=== PATIENT | female | born 1945 | race Caucasian/White ===

== ENCOUNTER 2018-08-18 10:45 | Inpatient (IN) | payer MEDICARE, MEDICAID ==
[~2018-08-18] VITALS: Ht 160 cm; Wt 97.7 kg
[2018-08-18] MEDS ORDERED: FUROSEMIDE 40MG/4ML VIAL IV ONE (11:15)
[2018-08-18] MEDS ORDERED: ASPIRIN 81MG TABLET PO ONE (11:15)
[2018-08-18] MEDS ORDERED: IPRATROPIUM/ALBUTEROL 0.5-3(2.5)MG/3ML NEB HHN ONE (11:15)
[2018-08-18 13:02] LABS: BASOPHILS % 0.7 % (0.0-2.0); EOSINOPHILS % 4.9 % (0.0-5.0); HEMOGLOBIN. 9.7 g/dL (12.0-16.0); LYMPHOCYTES % 23.1 % (20.0-50.0); MEAN CORPUSCULAR HEMOGLOBIN 28.5 pg (28.0-32.0); MEAN PLATELET VOLUME 9.6 fl (7.4-10.4); MONOCYTES % 8.3 % (2.0-8.0); PLATELET 234 x1000/uL (130-400); RED BLOOD CELL COUNT 3.41 mill/uL (4.2-5.4); RED CELL DISTRIBUTION WIDTH 13.4 % (11.6-14.6)
[2018-08-18 13:06] LABS: CHLORIDE 110 mEq/L (98-107)
[2018-08-18 13:17] LABS: D-DIMER 1.75 mg/L FEU (<0.50); PROTHROMBIN TIME 10.5 sec (9.6-11.0)
[2018-08-18 14:47] LABS: CLARITY URINE CLEAR (CLEAR); COLOR URINE YELLOW (YELLOW); KETONES URINE NEGATIVE (NEGATIVE); LEUKOCYTE ESTERASE URINE NEGATIVE (NEGATIVE); NITRITE URINE NEGATIVE (NEGATIVE); OCCULT BLOOD URINE NEGATIVE (NEGATIVE); PH URINE 6.5 (4.5-8.0); PROTEIN URINE TRACE (NEGATIVE); SPECIFIC GRAVITY URINE 1.007 (1.005-1.030); UROBILINOGEN URINE 0.2 E.U./dL (0.2-1.0)
[2018-08-18] MEDS ORDERED: IOHEXOL-350 100 ML BOTTLE ONE (16:25)
[2018-08-18 21:00] VITALS: BP 128/67
[2018-08-18] MEDS ORDERED: MAGNESIUM/ALUMINUM HYDROXIDE/SIMETHICONE 30ML UDC PO PRN (21:30)
[2018-08-18] MEDS ORDERED: IPRATROPIUM/ALBUTEROL 0.5-3(2.5)MG/3ML NEB INH PRN (21:30)
[2018-08-18] MEDS ORDERED: DIPHENHYDRAMINE 50MG/ML VIAL IV PRN (21:30)
[2018-08-18] MEDS ORDERED: CLONIDINE 0.1MG TABLET PO PRN (21:30)
[2018-08-18] MEDS ORDERED: SENNOSIDES 8.6MG TABLET PO PRN (21:30)
[2018-08-18] MEDS ORDERED: MAGNESIUM HYDROXIDE 400MG/5ML 30ML UDC PO PRN (21:30)
[2018-08-18] MEDS ORDERED: TEMAZEPAM 15MG CAPSULE PO PRN (21:30)
[2018-08-18] MEDS ORDERED: ONDANSETRON HCL 4MG/2ML INJ IV PRN (21:30)
[2018-08-18] MEDS ORDERED: ACETAMINOPHEN 325MG TABLET PO PRN (21:30)
[2018-08-18] MEDS: LOSARTAN POTASSIUM 50 MG TABLET PO SCH (22:21)
[2018-08-18] MEDS: FUROSEMIDE 40MG/4ML VIAL IVP SCH (22:22)
[2018-08-18] MEDS: SODIUM CHLORIDE 0.9% INJ 3ML FLUSH IVF SCH (22:22)
[2018-08-18 23:13] VITALS: BP 128/67
[2018-08-19] VITALS: BP 112/55
[2018-08-19] MEDS ORDERED: CLONIDINE 0.1MG TABLET PO PRN (01:15)
[2018-08-19] MEDS ORDERED: ONDANSETRON HCL 4MG/2ML INJ IV PRN (01:15)
[2018-08-19] MEDS ORDERED: ACETAMINOPHEN 325MG TABLET PO PRN (01:15)
[2018-08-19] MEDS ORDERED: DIPHENHYDRAMINE 50MG/ML VIAL IV PRN (01:15)
[2018-08-19] MEDS ORDERED: DEXTROSE 50% WATER 50ML SYRINGE IV PRN ×2 (01:15→07:40)
[2018-08-19] MEDS ORDERED: MAGNESIUM/ALUMINUM HYDROXIDE/SIMETHICONE 30ML UDC PO PRN (01:15)
[2018-08-19 04:00] VITALS: BP 118/56
[2018-08-19] MEDS ORDERED: SODIUM CHLORIDE 0.9% INJ 3ML FLUSH IVF SCH (06:00)
[2018-08-19] MEDS: SODIUM CHLORIDE 0.9% INJ 3ML FLUSH IVF SCH ×3 (06:17→21:48)
[2018-08-19 07:36] LABS: BASOPHILS % 0.5 % (0.0-2.0); EOSINOPHILS % 5.1 % (0.0-5.0); HEMATOCRIT. 27.4 % (36.0-48.0); HEMOGLOBIN. 9.1 g/dL (12.0-16.0); MEAN CORPUSCULAR HEMOGLOBIN 28.2 pg (28.0-32.0); MEAN PLATELET VOLUME 9.7 fl (7.4-10.4); MONOCYTES % 11.3 % (2.0-8.0); NEUTROPHILS % 63.1 % (40.0-76.0); PLATELET 207 x1000/uL (130-400); RED BLOOD CELL COUNT 3.22 mill/uL (4.2-5.4); RED CELL DISTRIBUTION WIDTH 13.2 % (11.6-14.6)
[2018-08-19 07:37] LABS: CHLORIDE 108 mEq/L (98-107)
[2018-08-19] MEDS ORDERED: BLOOD SUGAR DIAGNOSTIC STRIP TEST SCH (07:40)
[2018-08-19] MEDS ORDERED: OMEPRAZOLE 20MG CAPSULE EXTENDED RELEASE PO SCH (07:40)
[2018-08-19 07:43] LABS: LDL CHOLESTEROL 45 mg/dL (5-100); PHOSPHORUS 4.2 mg/dL (2.5-4.9)
[2018-08-19 07:45] LABS: HDL CHOLESTEROL 54 mg/dL (40-59)
[2018-08-19] MEDS: INSULIN LISPRO 100 UNITS/ML SUBCUT SCH ×4 (07:50→22:04)
[2018-08-19] MEDS: BLOOD SUGAR DIAGNOSTIC STRIP TEST SCH ×4 (07:50→21:48)
[2018-08-19 08:00] VITALS: BP 146/51
[2018-08-19] MEDS ORDERED: METFORMIN HCL 500MG TABLET PO SCH (08:10)
[2018-08-19] MEDS ORDERED: INSULIN LISPRO 100 UNITS/ML SUBCUT SCH (08:10)
[2018-08-19] MEDS ORDERED: AMLODIPINE 5MG TABLET PO SCH (09:00)
[2018-08-19] MEDS ORDERED: CHOLECALCIFEROL (VIT D3) 400 UNIT TABLET PO SCH (09:00)
[2018-08-19] MEDS: ASPIRIN 81MG EC TABLET PO SCH (09:03)
[2018-08-19] MEDS: LOSARTAN POTASSIUM 50 MG TABLET PO SCH ×2 (09:03→21:47)
[2018-08-19] MEDS: SPIRONOLACTONE 25MG TABLET PO SCH (09:04)
[2018-08-19] MEDS: CARVEDILOL 12.5MG TABLET PO SCH ×2 (09:04→21:47)
[2018-08-19] MEDS: ENOXAPARIN 40MG/0.4ML SYR SUBCUT SCH (09:05)
[2018-08-19] MEDS: FUROSEMIDE 40MG/4ML VIAL IVP SCH ×2 (09:55→22:07)
[2018-08-19 12:00] VITALS: BP 136/54
[2018-08-19 16:00] VITALS: BP 138/55
[2018-08-19 20:00] VITALS: BP 124/43
[2018-08-19] MEDS ORDERED: TERAZOSIN HCL 1MG CAPSULE PO SCH (21:00)
[2018-08-19] MEDS: ATORVASTATIN CALCIUM 40MG TABLET PO SCH (21:47)
[2018-08-19] MEDS: IRON SUCROSE COMPLEX 100 MG/5 ML ML IV SCH (22:07)
[2018-08-20] VITALS: BP 107/30
[2018-08-20 04:00] VITALS: BP 131/69
[2018-08-20] MEDS: BLOOD SUGAR DIAGNOSTIC STRIP TEST SCH ×4 (06:09→22:44)
[2018-08-20] MEDS: SODIUM CHLORIDE 0.9% INJ 3ML FLUSH IVF SCH ×3 (06:09→22:45)
[2018-08-20 08:00] VITALS: BP 145/45
[2018-08-20] MEDS: INSULIN LISPRO 100 UNITS/ML SUBCUT SCH ×4 (08:10→22:48)
[2018-08-20] MEDS: ENOXAPARIN 40MG/0.4ML SYR SUBCUT SCH (09:00)
[2018-08-20] MEDS: CARVEDILOL 12.5MG TABLET PO SCH ×2 (10:06→22:43)
[2018-08-20] MEDS: FUROSEMIDE 40MG/4ML VIAL IVP SCH ×2 (10:06→22:06)
[2018-08-20] MEDS: SPIRONOLACTONE 25MG TABLET PO SCH (10:06)
[2018-08-20] MEDS: ASPIRIN 81MG EC TABLET PO SCH (10:07)
[2018-08-20] MEDS: LOSARTAN POTASSIUM 50 MG TABLET PO SCH ×2 (10:09→22:43)
[2018-08-20 20:00] VITALS: BP 134/52
[2018-08-20] MEDS: IRON SUCROSE COMPLEX 100 MG/5 ML ML IV SCH (22:06)
[2018-08-20] MEDS: ATORVASTATIN CALCIUM 40MG TABLET PO SCH (22:43)
[2018-08-21] VITALS: BP 125/56
[2018-08-21 04:00] VITALS: BP 135/53
[2018-08-21] MEDS: SODIUM CHLORIDE 0.9% INJ 3ML FLUSH IVF SCH ×3 (06:51→21:07)
[2018-08-21] MEDS: BLOOD SUGAR DIAGNOSTIC STRIP TEST SCH ×4 (06:51→21:07)
[2018-08-21 08:00] VITALS: BP 144/55
[2018-08-21] MEDS: FUROSEMIDE 40MG/4ML VIAL IVP SCH ×2 (08:35→21:07)
[2018-08-21] MEDS: LOSARTAN POTASSIUM 50 MG TABLET PO SCH ×2 (08:49→21:06)
[2018-08-21] MEDS: ENOXAPARIN 40MG/0.4ML SYR SUBCUT SCH (08:50)
[2018-08-21] MEDS: SPIRONOLACTONE 25MG TABLET PO SCH (08:50)
[2018-08-21] MEDS: ASPIRIN 81MG EC TABLET PO SCH (08:50)
[2018-08-21] MEDS: INSULIN LISPRO 100 UNITS/ML SUBCUT SCH ×4 (08:51→21:08)
[2018-08-21] MEDS: CARVEDILOL 12.5MG TABLET PO SCH (08:55)
[2018-08-21 12:00] VITALS: BP 145/46
[2018-08-21 16:00] VITALS: BP 133/50
[2018-08-21 20:00] VITALS: BP 135/41
[2018-08-21] MEDS: IRON SUCROSE COMPLEX 100 MG/5 ML ML IV SCH (21:07)
[2018-08-21] MEDS: ATORVASTATIN CALCIUM 40MG TABLET PO SCH (21:09)
[2018-08-22] VITALS: BP 139/52
[2018-08-22 04:00] VITALS: BP 153/60
[2018-08-22] MEDS: SODIUM CHLORIDE 0.9% INJ 3ML FLUSH IVF SCH ×3 (05:49→21:18)
[2018-08-22 08:00] VITALS: BP 166/58
[2018-08-22] MEDS: ENOXAPARIN 40MG/0.4ML SYR SUBCUT SCH (08:25)
[2018-08-22] MEDS: INSULIN LISPRO 100 UNITS/ML SUBCUT SCH ×4 (08:25→21:37)
[2018-08-22] MEDS: LOSARTAN POTASSIUM 50 MG TABLET PO SCH (08:27)
[2018-08-22] MEDS: SPIRONOLACTONE 25MG TABLET PO SCH (08:27)
[2018-08-22] MEDS: BLOOD SUGAR DIAGNOSTIC STRIP TEST SCH ×4 (08:27→21:18)
[2018-08-22] MEDS: ASPIRIN 81MG EC TABLET PO SCH (08:27)
[2018-08-22] MEDS: FUROSEMIDE 40MG/4ML VIAL IVP SCH (09:04)
[2018-08-22] MEDS ORDERED: HYDRALAZINE HCL 25MG TABLET PO SCH (11:15)
[2018-08-22 12:00] VITALS: BP 134/60
[2018-08-22] MEDS: FERROUS SULFATE 325MG TABLET PO SCH ×2 (14:10→18:16)
[2018-08-22 20:00] VITALS: BP 134/49
[2018-08-22] MEDS: ATORVASTATIN CALCIUM 40MG TABLET PO SCH (21:17)
[2018-08-22] MEDS: HYDRALAZINE HCL 50MG TABLET PO SCH (21:18)
[2018-08-23] VITALS: BP 119/41
[2018-08-23 04:00] VITALS: BP 130/48
[2018-08-23] MEDS: BLOOD SUGAR DIAGNOSTIC STRIP TEST SCH ×3 (06:07→17:40)
[2018-08-23] MEDS: SODIUM CHLORIDE 0.9% INJ 3ML FLUSH IVF SCH ×2 (06:08→14:00)
[2018-08-23] MEDS: INSULIN LISPRO 100 UNITS/ML SUBCUT SCH ×3 (07:29→18:35)
[2018-08-23 08:00] VITALS: BP 136/45
[2018-08-23] MEDS ORDERED: FUROSEMIDE 40MG TABLET PO SCH (09:00)
[2018-08-23] MEDS ORDERED: LOSARTAN POTASSIUM 100 MG TABLET PO SCH (09:00)
[2018-08-23] MEDS: ASPIRIN 81MG EC TABLET PO SCH (09:40)
[2018-08-23] MEDS: FERROUS SULFATE 325MG TABLET PO SCH ×3 (09:40→18:35)
[2018-08-23] MEDS: HYDRALAZINE HCL 50MG TABLET PO SCH (09:41)
[2018-08-23] MEDS: ENOXAPARIN 40MG/0.4ML SYR SUBCUT SCH (09:49)
[2018-08-23 12:00] VITALS: BP 136/45
[2018-08-23 15:57] VITALS: BP 144/41
[2018-08-23 18:51] VITALS: BP 144/41
== END 2018-08-23 19:30 | DRG 291 ==
LOC: ER 10:45 → EDBEDREQ 11:49 → 7WST 13:45 → EDBEDREQ 13:47 → ENRESERV 20:31
PROVIDERS: ADMIT Internal Medicine; ATTEND Internal Medicine
DX: I11.0 Hypertensive heart disease with heart failure (principal); J96.00 Acute respiratory failure, unspecified whether with hypoxia or hypercapnia; G45.9 Transient cerebral ischemic attack, unspecified; I69.354 Hemiplegia and hemiparesis following cerebral infarction affecting left non-dominant side; D50.9 Iron deficiency anemia, unspecified; E66.01 Morbid (severe) obesity due to excess calories; R00.1 Bradycardia, unspecified; E11.9 Type 2 diabetes mellitus without complications; E78.5 Hyperlipidemia, unspecified; I50.43 Acute on chronic combined systolic (congestive) and diastolic (congestive) heart failure; M19.90 Unspecified osteoarthritis, unspecified site; R79.1 Abnormal coagulation profile; Z68.38 Body mass index [BMI] 38.0-38.9, adult; Z82.49 Family history of ischemic heart disease and other diseases of the circulatory system; Z90.710 Acquired absence of both cervix and uterus; Z90.49 Acquired absence of other specified parts of digestive tract
CPT/HCPCS: 36415; 70551; 71045; 71275; 80048; 80061; 82270; 82962; 83036; 83540; 83550; 83605; 83735; 83880; 84100; 84443; 84484; 85379; 92523; 93005; 93306; 93970; 96374; 97162; 97164; 97166; 99285; A6261; J1200; J1650; J1815; J1940; J7620; Q9967

== ENCOUNTER 2018-08-23 19:30 | Inpatient (IN) | payer MEDICARE, MEDICAID ==
[~2018-08-23] VITALS: Ht 160 cm; Wt 78.0 kg
[2018-08-23 19:30] VITALS: BP 138/70
[2018-08-23 20:00] VITALS: BP 138/70
[2018-08-23] MEDS ORDERED: DEXTROSE 50% WATER 50ML SYRINGE IV PRN ×2 (23:00)
[2018-08-23] MEDS: INSULIN LISPRO 100 UNITS/ML SUBCUT SCH (23:45)
[2018-08-24] MEDS ORDERED: ACETAMINOPHEN 650MG SUPP PR PRN
[2018-08-24] MEDS ORDERED: CLONIDINE 0.1MG TABLET PO PRN
[2018-08-24] MEDS ORDERED: MAGNESIUM HYDROXIDE 400MG/5ML 30ML UDC PO PRN
[2018-08-24] MEDS ORDERED: MAGNESIUM/ALUMINUM HYDROXIDE/SIMETHICONE 30ML UDC PO PRN
[2018-08-24] MEDS: BLOOD SUGAR DIAGNOSTIC STRIP TEST SCH ×5 (00:12→21:42)
[2018-08-24] MEDS: ATORVASTATIN CALCIUM 40MG TABLET PO SCH ×2 (00:13→21:42)
[2018-08-24] MEDS: TEMAZEPAM 15MG CAPSULE PO PRN (00:29)
[2018-08-24] MEDS ORDERED: ACETAMINOPHEN 325MG TABLET PO PRN (00:30)
[2018-08-24] MEDS: IPRATROPIUM/ALBUTEROL 0.5-3(2.5)MG/3ML NEB HHN PRN (00:57)
[2018-08-24] MEDS ORDERED: BLOOD SUGAR DIAGNOSTIC STRIP TEST SCH (06:30)
[2018-08-24] MEDS: INSULIN LISPRO 100 UNITS/ML SUBCUT SCH ×4 (06:52→21:30)
[2018-08-24 07:02] LABS: HEMATOCRIT. 28.7 % (36.0-48.0); HEMOGLOBIN. 9.5 g/dL (12.0-16.0); MEAN CORPUSCULAR HEMOGLOBIN 28.2 pg (28.0-32.0); MEAN CORPUSCULAR VOLUME 85.1 fL (81.0-99.0); MEAN PLATELET VOLUME 9.9 fl (7.4-10.4); PLATELET 207 x1000/uL (130-400); RED BLOOD CELL COUNT 3.38 mill/uL (4.2-5.4)
[2018-08-24 07:31] LABS: CHLORIDE 105 mEq/L (98-107)
[2018-08-24 08:19] VITALS: BP 144/53
[2018-08-24] MEDS: LOSARTAN POTASSIUM 100 MG TABLET PO SCH (09:37)
[2018-08-24] MEDS: HYDRALAZINE HCL 50MG TABLET PO SCH ×2 (09:37→21:43)
[2018-08-24] MEDS: ENOXAPARIN 40MG/0.4ML SYR SUBCUT SCH (09:37)
[2018-08-24] MEDS: FERROUS SULFATE 325MG TABLET PO SCH ×3 (09:37→17:23)
[2018-08-24] MEDS: ASPIRIN 81MG EC TABLET PO SCH (09:37)
[2018-08-24] MEDS: FUROSEMIDE 40MG TABLET PO SCH (09:38)
[2018-08-24 15:47] LABS: PLATELET ESTIMATE NORMAL
[2018-08-24 20:00] VITALS: BP 125/53
[2018-08-24] MEDS ORDERED: ATORVASTATIN CALCIUM 40MG TABLET PO SCH (21:00)
[2018-08-25] MEDS: TEMAZEPAM 15MG CAPSULE PO PRN ×2 (00:12→22:43)
[2018-08-25] MEDS: IPRATROPIUM/ALBUTEROL 0.5-3(2.5)MG/3ML NEB HHN PRN (00:38)
[2018-08-25 01:00] LABS: CLARITY URINE CLEAR (CLEAR); COLOR URINE YELLOW (YELLOW); KETONES URINE NEGATIVE (NEGATIVE); LEUKOCYTE ESTERASE URINE TRACE (NEGATIVE); NITRITE URINE NEGATIVE (NEGATIVE); OCCULT BLOOD URINE NEGATIVE (NEGATIVE); PH URINE 6.5 (4.5-8.0); PROTEIN URINE 1+ (NEGATIVE); SPECIFIC GRAVITY URINE 1.009 (1.005-1.030)
[2018-08-25] MEDS: BLOOD SUGAR DIAGNOSTIC STRIP TEST SCH ×4 (05:59→21:00)
[2018-08-25] MEDS: INSULIN LISPRO 100 UNITS/ML SUBCUT SCH ×4 (06:00→21:00)
[2018-08-25 08:36] VITALS: BP 122/41
[2018-08-25] MEDS: FERROUS SULFATE 325MG TABLET PO SCH ×3 (08:54→17:15)
[2018-08-25] MEDS: FUROSEMIDE 40MG TABLET PO SCH (08:54)
[2018-08-25] MEDS: ASPIRIN 81MG EC TABLET PO SCH (08:54)
[2018-08-25] MEDS: LOSARTAN POTASSIUM 100 MG TABLET PO SCH (08:54)
[2018-08-25] MEDS: ENOXAPARIN 40MG/0.4ML SYR SUBCUT SCH (08:55)
[2018-08-25] MEDS: LIDOCAINE 5% PATCH TOP SCH (08:55)
[2018-08-25] MEDS: HYDRALAZINE HCL 50MG TABLET PO SCH ×2 (09:00→20:53)
[2018-08-25] MEDS: LACTULOSE 20G/30ML UDC PO SCH ×3 (13:04→20:00)
[2018-08-25 20:30] VITALS: BP 136/68
[2018-08-25] MEDS: ATORVASTATIN CALCIUM 40MG TABLET PO SCH (20:52)
[2018-08-26] MEDS: BLOOD SUGAR DIAGNOSTIC STRIP TEST SCH ×4 (06:30→21:59)
[2018-08-26 06:48] LABS: CHLORIDE 106 mEq/L (98-107)
[2018-08-26 06:51] LABS: BASOPHILS % 0.7 % (0.0-2.0); EOSINOPHILS % 7.1 % (0.0-5.0); HEMATOCRIT. 29.7 % (36.0-48.0); LYMPHOCYTES % 27.4 % (20.0-50.0); MEAN CORPUSCULAR HEMOGLOBIN 28.2 pg (28.0-32.0); MEAN CORPUSCULAR VOLUME 84.3 fL (81.0-99.0); MEAN PLATELET VOLUME 9.5 fl (7.4-10.4); MONOCYTES % 11.7 % (2.0-8.0); NEUTROPHILS % 53.1 % (40.0-76.0); PLATELET 211 x1000/uL (130-400); RED BLOOD CELL COUNT 3.53 mill/uL (4.2-5.4); RED CELL DISTRIBUTION WIDTH 13.4 % (11.6-14.6)
[2018-08-26 07:00] LABS: TOTAL IRON BINDING CAPACITY 193 ug/dL (250-450)
[2018-08-26 07:01] LABS: PHOSPHORUS 3.1 mg/dL (2.5-4.9)
[2018-08-26] MEDS: INSULIN LISPRO 100 UNITS/ML SUBCUT SCH ×4 (07:25→22:00)
[2018-08-26 07:36] LABS: FOLIC ACID (FOLATE) SERUM 10.9 ng/mL (>5.38)
[2018-08-26 08:36] VITALS: BP 123/49
[2018-08-26] MEDS ORDERED: CYANOCOBALAMIN 1000MCG/ML VIAL IM NR (08:45)
[2018-08-26] MEDS: FERROUS SULFATE 325MG TABLET PO SCH ×3 (08:47→16:41)
[2018-08-26] MEDS: ASPIRIN 81MG EC TABLET PO SCH (08:47)
[2018-08-26] MEDS: FUROSEMIDE 40MG TABLET PO SCH (08:47)
[2018-08-26] MEDS: HYDRALAZINE HCL 50MG TABLET PO SCH ×2 (08:47→21:59)
[2018-08-26] MEDS: LIDOCAINE 5% PATCH TOP SCH (08:48)
[2018-08-26] MEDS: ENOXAPARIN 40MG/0.4ML SYR SUBCUT SCH (08:48)
[2018-08-26] MEDS: LOSARTAN POTASSIUM 100 MG TABLET PO SCH (08:48)
[2018-08-26] MEDS: AMOXICILLIN 500 MG CAPSULE PO SCH ×2 (14:01→21:58)
[2018-08-26] MEDS: CYANOCOBALAMIN 1000MCG/ML VIAL IM SCH (18:23)
[2018-08-26 20:00] VITALS: BP 126/63
[2018-08-26] MEDS: ATORVASTATIN CALCIUM 40MG TABLET PO SCH (21:58)
[2018-08-27] MEDS: TEMAZEPAM 15MG CAPSULE PO PRN (01:04)
[2018-08-27] MEDS: BLOOD SUGAR DIAGNOSTIC STRIP TEST SCH ×4 (06:32→21:19)
[2018-08-27] MEDS: AMOXICILLIN 500 MG CAPSULE PO SCH ×3 (06:33→21:18)
[2018-08-27] MEDS: INSULIN LISPRO 100 UNITS/ML SUBCUT SCH ×4 (06:33→22:00)
[2018-08-27 07:30] VITALS: BP 144/56
[2018-08-27] MEDS: ASPIRIN 81MG EC TABLET PO SCH (09:11)
[2018-08-27] MEDS: FUROSEMIDE 40MG TABLET PO SCH (09:11)
[2018-08-27] MEDS: CYANOCOBALAMIN 1000MCG/ML VIAL IM SCH (09:12)
[2018-08-27] MEDS: HYDRALAZINE HCL 50MG TABLET PO SCH ×2 (09:12→21:19)
[2018-08-27] MEDS: ENOXAPARIN 40MG/0.4ML SYR SUBCUT SCH (09:12)
[2018-08-27] MEDS: FERROUS SULFATE 325MG TABLET PO SCH ×3 (09:12→16:40)
[2018-08-27] MEDS: LOSARTAN POTASSIUM 100 MG TABLET PO SCH (09:12)
[2018-08-27] MEDS: LIDOCAINE 5% PATCH TOP SCH (09:13)
[2018-08-27] MEDS: ATORVASTATIN CALCIUM 40MG TABLET PO SCH (21:18)
[2018-08-27 21:31] VITALS: BP 123/42
[2018-08-28] MEDS: BLOOD SUGAR DIAGNOSTIC STRIP TEST SCH ×4 (06:03→21:50)
[2018-08-28] MEDS: AMOXICILLIN 500 MG CAPSULE PO SCH ×3 (06:04→21:10)
[2018-08-28] MEDS: INSULIN LISPRO 100 UNITS/ML SUBCUT SCH ×4 (06:09→21:11)
[2018-08-28 08:05] VITALS: BP 144/59
[2018-08-28] MEDS: HYDRALAZINE HCL 50MG TABLET PO SCH ×2 (08:53→21:10)
[2018-08-28] MEDS: ASPIRIN 81MG EC TABLET PO SCH (08:53)
[2018-08-28] MEDS: FUROSEMIDE 40MG TABLET PO SCH (08:53)
[2018-08-28] MEDS: CYANOCOBALAMIN 1000MCG/ML VIAL IM SCH (08:54)
[2018-08-28] MEDS: LOSARTAN POTASSIUM 100 MG TABLET PO SCH (08:54)
[2018-08-28] MEDS: FERROUS SULFATE 325MG TABLET PO SCH ×3 (08:54→16:50)
[2018-08-28] MEDS: ENOXAPARIN 40MG/0.4ML SYR SUBCUT SCH (08:54)
[2018-08-28] MEDS: LIDOCAINE 5% PATCH TOP SCH (08:55)
[2018-08-28 20:00] VITALS: BP 137/93
[2018-08-28] MEDS: TEMAZEPAM 15MG CAPSULE PO PRN (21:10)
[2018-08-28] MEDS: ATORVASTATIN CALCIUM 40MG TABLET PO SCH (21:10)
[2018-08-28] MEDS: SENNOSIDES 8.6MG TABLET PO PRN (21:10)
[2018-08-29] MEDS: AMOXICILLIN 500 MG CAPSULE PO SCH ×3 (06:14→21:04)
[2018-08-29] MEDS: INSULIN LISPRO 100 UNITS/ML SUBCUT SCH ×4 (06:16→21:08)
[2018-08-29] MEDS: BLOOD SUGAR DIAGNOSTIC STRIP TEST SCH ×4 (06:40→21:00)
[2018-08-29 07:38] VITALS: BP 148/55
[2018-08-29 08:00] VITALS: BP 148/55
[2018-08-29] MEDS: ASPIRIN 81MG EC TABLET PO SCH (08:27)
[2018-08-29] MEDS: FUROSEMIDE 40MG TABLET PO SCH (08:28)
[2018-08-29] MEDS: LOSARTAN POTASSIUM 100 MG TABLET PO SCH (08:28)
[2018-08-29] MEDS: FERROUS SULFATE 325MG TABLET PO SCH ×3 (08:28→16:25)
[2018-08-29] MEDS: HYDRALAZINE HCL 50MG TABLET PO SCH ×2 (08:28→21:04)
[2018-08-29] MEDS: ENOXAPARIN 40MG/0.4ML SYR SUBCUT SCH (08:29)
[2018-08-29] MEDS: LIDOCAINE 5% PATCH TOP SCH (08:29)
[2018-08-29] MEDS: CYANOCOBALAMIN 1000MCG/ML VIAL IM SCH (08:37)
[2018-08-29 20:00] VITALS: BP 159/53
[2018-08-29] MEDS: ATORVASTATIN CALCIUM 40MG TABLET PO SCH (21:04)
[2018-08-30] MEDS: BLOOD SUGAR DIAGNOSTIC STRIP TEST SCH ×4 (06:30→21:22)
[2018-08-30] MEDS: AMOXICILLIN 500 MG CAPSULE PO SCH ×3 (06:34→21:21)
[2018-08-30] MEDS: INSULIN LISPRO 100 UNITS/ML SUBCUT SCH ×4 (06:34→21:27)
[2018-08-30 08:00] VITALS: BP 130/55
[2018-08-30] MEDS: CYANOCOBALAMIN 1000MCG/ML VIAL IM SCH (09:10)
[2018-08-30] MEDS: ASPIRIN 81MG EC TABLET PO SCH (09:10)
[2018-08-30] MEDS: HYDRALAZINE HCL 50MG TABLET PO SCH ×2 (09:11→21:22)
[2018-08-30] MEDS: FUROSEMIDE 40MG TABLET PO SCH (09:11)
[2018-08-30] MEDS: FERROUS SULFATE 325MG TABLET PO SCH ×3 (09:11→17:49)
[2018-08-30] MEDS: LOSARTAN POTASSIUM 100 MG TABLET PO SCH (09:11)
[2018-08-30] MEDS: ENOXAPARIN 40MG/0.4ML SYR SUBCUT SCH (09:14)
[2018-08-30] MEDS: LIDOCAINE 5% PATCH TOP SCH (09:15)
[2018-08-30] MEDS: CELECOXIB 100MG CAPSULE PO SCH (15:00)
[2018-08-30 20:00] VITALS: BP 135/48
[2018-08-30] MEDS: SENNOSIDES 8.6MG TABLET PO PRN (21:21)
[2018-08-30] MEDS: ATORVASTATIN CALCIUM 40MG TABLET PO SCH (21:22)
[2018-08-31] MEDS: BLOOD SUGAR DIAGNOSTIC STRIP TEST SCH ×4 (06:11→21:32)
[2018-08-31] MEDS: AMOXICILLIN 500 MG CAPSULE PO SCH ×3 (06:11→21:30)
[2018-08-31] MEDS: INSULIN LISPRO 100 UNITS/ML SUBCUT SCH ×4 (06:37→21:36)
[2018-08-31 07:56] VITALS: BP 121/39
[2018-08-31 08:00] VITALS: BP 121/39
[2018-08-31] MEDS: FERROUS SULFATE 325MG TABLET PO SCH ×3 (08:42→17:35)
[2018-08-31] MEDS: CELECOXIB 100MG CAPSULE PO SCH (08:42)
[2018-08-31] MEDS: ENOXAPARIN 40MG/0.4ML SYR SUBCUT SCH (08:42)
[2018-08-31] MEDS: FUROSEMIDE 40MG TABLET PO SCH (08:43)
[2018-08-31] MEDS: ASPIRIN 81MG EC TABLET PO SCH (08:43)
[2018-08-31] MEDS: LIDOCAINE 5% PATCH TOP SCH (08:43)
[2018-08-31] MEDS: HYDRALAZINE HCL 50MG TABLET PO SCH ×2 (08:43→21:00)
[2018-08-31] MEDS: CYANOCOBALAMIN 1000MCG/ML VIAL IM SCH (08:50)
[2018-08-31] MEDS: LOSARTAN POTASSIUM 100 MG TABLET PO SCH (08:51)
[2018-08-31] MEDS ORDERED: BUPIVACAINE HCL/PF 0.25% (2.5MG/ML) 10ML INFIL NR (17:45)
[2018-08-31] MEDS ORDERED: ETHYL CHLORIDE CAN TOP NR (17:45)
[2018-08-31] MEDS ORDERED: TRIAMCINOLONE ACETONIDE 40MG/ML 1ML VIAL IM NR (17:45)
[2018-08-31] MEDS ORDERED: LIDOCAINE HCL 1% 20ML VIAL (Pyxis) INJ INFIL NR (17:45)
[2018-08-31 20:00] VITALS: BP 108/50
[2018-08-31] MEDS: ATORVASTATIN CALCIUM 40MG TABLET PO SCH (21:30)
[2018-09-01] MEDS: BLOOD SUGAR DIAGNOSTIC STRIP TEST SCH ×4 (05:15→21:00)
[2018-09-01] MEDS: AMOXICILLIN 500 MG CAPSULE PO SCH ×3 (05:15→22:27)
[2018-09-01] MEDS: INSULIN LISPRO 100 UNITS/ML SUBCUT SCH ×4 (06:27→22:29)
[2018-09-01 06:35] LABS: BASOPHILS % 0.8 % (0.0-2.0); EOSINOPHILS % 7.2 % (0.0-5.0); HEMATOCRIT. 30.2 % (36.0-48.0); LYMPHOCYTES % 33.5 % (20.0-50.0); MEAN CORPUSCULAR HEMOGLOBIN 28.2 pg (28.0-32.0); MEAN CORPUSCULAR VOLUME 84.8 fL (81.0-99.0); MEAN PLATELET VOLUME 9.7 fl (7.4-10.4); NEUTROPHILS % 47.5 % (40.0-76.0); PLATELET 217 x1000/uL (130-400); RED BLOOD CELL COUNT 3.56 mill/uL (4.2-5.4); RED CELL DISTRIBUTION WIDTH 13.7 % (11.6-14.6)
[2018-09-01 08:52] VITALS: BP 134/50
[2018-09-01] MEDS: ENOXAPARIN 40MG/0.4ML SYR SUBCUT SCH (09:33)
[2018-09-01] MEDS: LIDOCAINE 5% PATCH TOP SCH (09:35)
[2018-09-01] MEDS: CELECOXIB 100MG CAPSULE PO SCH (09:36)
[2018-09-01] MEDS: ASPIRIN 81MG EC TABLET PO SCH (09:37)
[2018-09-01] MEDS: LOSARTAN POTASSIUM 100 MG TABLET PO SCH (09:37)
[2018-09-01] MEDS: HYDRALAZINE HCL 50MG TABLET PO SCH ×2 (09:38→22:28)
[2018-09-01] MEDS: FUROSEMIDE 40MG TABLET PO SCH (09:38)
[2018-09-01] MEDS: FERROUS SULFATE 325MG TABLET PO SCH ×3 (09:39→16:35)
[2018-09-01] MEDS: CYANOCOBALAMIN 1000MCG/ML VIAL IM SCH (09:39)
[2018-09-01 20:00] VITALS: BP 153/58
[2018-09-01] MEDS: ATORVASTATIN CALCIUM 40MG TABLET PO SCH (22:27)
[2018-09-02] MEDS: AMOXICILLIN 500 MG CAPSULE PO SCH ×2 (05:49→13:09)
[2018-09-02] MEDS: BLOOD SUGAR DIAGNOSTIC STRIP TEST SCH ×4 (05:49→21:18)
[2018-09-02] MEDS: INSULIN LISPRO 100 UNITS/ML SUBCUT SCH ×4 (06:22→21:34)
[2018-09-02 08:40] VITALS: BP 124/43
[2018-09-02] MEDS: FERROUS SULFATE 325MG TABLET PO SCH ×3 (08:40→17:12)
[2018-09-02] MEDS: HYDRALAZINE HCL 50MG TABLET PO SCH ×2 (08:40→20:45)
[2018-09-02] MEDS: CELECOXIB 100MG CAPSULE PO SCH (08:40)
[2018-09-02] MEDS: ASPIRIN 81MG EC TABLET PO SCH (08:40)
[2018-09-02] MEDS: FUROSEMIDE 40MG TABLET PO SCH (08:40)
[2018-09-02] MEDS: LIDOCAINE 5% PATCH TOP SCH ×2 (08:41→11:51)
[2018-09-02] MEDS: ENOXAPARIN 40MG/0.4ML SYR SUBCUT SCH (08:41)
[2018-09-02] MEDS: LOSARTAN POTASSIUM 100 MG TABLET PO SCH (08:44)
[2018-09-02] MEDS: METFORMIN HCL 500MG TABLET PO SCH (17:12)
[2018-09-02 19:11] LABS: 25-HYDROXY VITAMIN D3 1.7 ng/mL (.)
[2018-09-02 20:00] VITALS: BP 131/44
[2018-09-02] MEDS: ATORVASTATIN CALCIUM 40MG TABLET PO SCH (20:45)
[2018-09-03] MEDS: BLOOD SUGAR DIAGNOSTIC STRIP TEST SCH ×4 (06:10→20:28)
[2018-09-03] MEDS: INSULIN LISPRO 100 UNITS/ML SUBCUT SCH ×4 (06:38→20:49)
[2018-09-03 07:15] LABS: BASOPHILS % 0.7 % (0.0-2.0); EOSINOPHILS % 6.2 % (0.0-5.0); HEMATOCRIT. 28.6 % (36.0-48.0); HEMOGLOBIN. 9.5 g/dL (12.0-16.0); LYMPHOCYTES % 29.3 % (20.0-50.0); MEAN CORPUSCULAR HEMOGLOBIN 27.9 pg (28.0-32.0); MEAN CORPUSCULAR VOLUME 84.5 fL (81.0-99.0); MONOCYTES % 9.8 % (2.0-8.0); PLATELET 211 x1000/uL (130-400); RED BLOOD CELL COUNT 3.39 mill/uL (4.2-5.4); RED CELL DISTRIBUTION WIDTH 13.5 % (11.6-14.6)
[2018-09-03 07:48] LABS: CHLORIDE 108 mEq/L (98-107)
[2018-09-03 07:59] LABS: PHOSPHORUS 3.5 mg/dL (2.5-4.9)
[2018-09-03 08:04] VITALS: BP 141/61
[2018-09-03] MEDS: METFORMIN HCL 500MG TABLET PO SCH ×2 (08:35→17:19)
[2018-09-03] MEDS: LOSARTAN POTASSIUM 100 MG TABLET PO SCH (08:35)
[2018-09-03] MEDS: ASPIRIN 81MG EC TABLET PO SCH (08:35)
[2018-09-03] MEDS: FUROSEMIDE 40MG TABLET PO SCH (08:35)
[2018-09-03] MEDS: FERROUS SULFATE 325MG TABLET PO SCH ×3 (08:36→17:19)
[2018-09-03] MEDS: CELECOXIB 100MG CAPSULE PO SCH (08:36)
[2018-09-03] MEDS: HYDRALAZINE HCL 50MG TABLET PO SCH ×2 (08:36→20:23)
[2018-09-03] MEDS: LIDOCAINE 5% PATCH TOP SCH ×2 (08:36→08:37)
[2018-09-03] MEDS: ENOXAPARIN 40MG/0.4ML SYR SUBCUT SCH (08:37)
[2018-09-03] MEDS ORDERED: ERGOCALCIFEROL 50000UNITS CAPSULE PO SCH (16:30)
[2018-09-03 20:00] VITALS: BP 134/50
[2018-09-03] MEDS: ATORVASTATIN CALCIUM 40MG TABLET PO SCH (20:23)
[2018-09-04] MEDS: BLOOD SUGAR DIAGNOSTIC STRIP TEST SCH ×4 (06:22→21:00)
[2018-09-04 08:07] VITALS: BP 142/49
[2018-09-04] MEDS: CELECOXIB 100MG CAPSULE PO SCH (08:51)
[2018-09-04] MEDS: FUROSEMIDE 40MG TABLET PO SCH (08:52)
[2018-09-04] MEDS: FERROUS SULFATE 325MG TABLET PO SCH ×3 (08:52→16:40)
[2018-09-04] MEDS: HYDRALAZINE HCL 50MG TABLET PO SCH ×2 (08:52→22:20)
[2018-09-04] MEDS: LOSARTAN POTASSIUM 100 MG TABLET PO SCH (08:52)
[2018-09-04] MEDS: METFORMIN HCL 500MG TABLET PO SCH ×2 (08:55→16:40)
[2018-09-04] MEDS: ENOXAPARIN 40MG/0.4ML SYR SUBCUT SCH (08:55)
[2018-09-04] MEDS: INSULIN LISPRO 100 UNITS/ML SUBCUT SCH ×4 (08:56→22:25)
[2018-09-04] MEDS: ASPIRIN 81MG EC TABLET PO SCH (09:02)
[2018-09-04] MEDS: LIDOCAINE 5% PATCH TOP SCH ×2 (09:03→09:04)
[2018-09-04 20:00] VITALS: BP 124/44
[2018-09-04] MEDS: ATORVASTATIN CALCIUM 40MG TABLET PO SCH (22:20)
[2018-09-05] MEDS: BLOOD SUGAR DIAGNOSTIC STRIP TEST SCH ×4 (07:05→21:15)
[2018-09-05] MEDS: INSULIN LISPRO 100 UNITS/ML SUBCUT SCH ×4 (07:10→21:21)
[2018-09-05 08:15] VITALS: BP 145/65
[2018-09-05] MEDS: LOSARTAN POTASSIUM 100 MG TABLET PO SCH (09:05)
[2018-09-05] MEDS: CELECOXIB 100MG CAPSULE PO SCH (09:06)
[2018-09-05] MEDS: FERROUS SULFATE 325MG TABLET PO SCH ×3 (09:06→16:33)
[2018-09-05] MEDS: ASPIRIN 81MG EC TABLET PO SCH (09:06)
[2018-09-05] MEDS: METFORMIN HCL 500MG TABLET PO SCH ×2 (09:06→16:33)
[2018-09-05] MEDS: FUROSEMIDE 40MG TABLET PO SCH (09:06)
[2018-09-05] MEDS: HYDRALAZINE HCL 50MG TABLET PO SCH ×2 (09:06→21:15)
[2018-09-05] MEDS: ENOXAPARIN 40MG/0.4ML SYR SUBCUT SCH (09:07)
[2018-09-05] MEDS: LIDOCAINE 5% PATCH TOP SCH ×2 (09:08→09:09)
[2018-09-05 20:00] VITALS: BP 139/40
[2018-09-05] MEDS: ATORVASTATIN CALCIUM 40MG TABLET PO SCH (21:14)
[2018-09-06] MEDS: BLOOD SUGAR DIAGNOSTIC STRIP TEST SCH ×4 (05:45→21:17)
[2018-09-06] MEDS: INSULIN LISPRO 100 UNITS/ML SUBCUT SCH ×4 (06:12→21:21)
[2018-09-06 07:00] LABS: BASOPHILS % 0.6 % (0.0-2.0); EOSINOPHILS % 3.5 % (0.0-5.0); HEMATOCRIT. 28.8 % (36.0-48.0); HEMOGLOBIN. 9.6 g/dL (12.0-16.0); MEAN CORPUSCULAR HEMOGLOBIN 28.2 pg (28.0-32.0); MEAN CORPUSCULAR VOLUME 84.3 fL (81.0-99.0); MEAN PLATELET VOLUME 9.5 fl (7.4-10.4); MONOCYTES % 9.3 % (2.0-8.0); NEUTROPHILS % 61.6 % (40.0-76.0); PLATELET 221 x1000/uL (130-400); RED BLOOD CELL COUNT 3.41 mill/uL (4.2-5.4); RED CELL DISTRIBUTION WIDTH 13.9 % (11.6-14.6)
[2018-09-06 07:08] LABS: CHLORIDE 107 mEq/L (98-107)
[2018-09-06 07:58] VITALS: BP 129/48
[2018-09-06] MEDS: ENOXAPARIN 40MG/0.4ML SYR SUBCUT SCH (08:04)
[2018-09-06] MEDS: HYDRALAZINE HCL 50MG TABLET PO SCH ×2 (08:05→21:17)
[2018-09-06] MEDS: CELECOXIB 100MG CAPSULE PO SCH (08:05)
[2018-09-06] MEDS: METFORMIN HCL 500MG TABLET PO SCH ×2 (08:05→16:21)
[2018-09-06] MEDS: LOSARTAN POTASSIUM 100 MG TABLET PO SCH (08:05)
[2018-09-06] MEDS: FERROUS SULFATE 325MG TABLET PO SCH ×3 (08:05→16:21)
[2018-09-06] MEDS: ASPIRIN 81MG EC TABLET PO SCH (08:05)
[2018-09-06] MEDS: FUROSEMIDE 40MG TABLET PO SCH (08:05)
[2018-09-06] MEDS: LIDOCAINE 5% PATCH TOP SCH ×2 (08:06→08:07)
[2018-09-06 20:00] VITALS: BP 134/54
[2018-09-06] MEDS: ATORVASTATIN CALCIUM 40MG TABLET PO SCH (21:17)
[2018-09-07] MEDS: BLOOD SUGAR DIAGNOSTIC STRIP TEST SCH ×4 (05:12→21:11)
[2018-09-07] MEDS: INSULIN LISPRO 100 UNITS/ML SUBCUT SCH ×4 (07:17→21:12)
[2018-09-07 07:49] VITALS: BP 169/69
[2018-09-07] MEDS: LOSARTAN POTASSIUM 100 MG TABLET PO SCH (08:12)
[2018-09-07] MEDS: METFORMIN HCL 500MG TABLET PO SCH ×2 (08:12→16:42)
[2018-09-07] MEDS: ASPIRIN 81MG EC TABLET PO SCH (08:12)
[2018-09-07] MEDS: CELECOXIB 100MG CAPSULE PO SCH (08:13)
[2018-09-07] MEDS: FUROSEMIDE 40MG TABLET PO SCH (08:13)
[2018-09-07] MEDS: HYDRALAZINE HCL 50MG TABLET PO SCH ×2 (08:13→21:11)
[2018-09-07] MEDS: FERROUS SULFATE 325MG TABLET PO SCH ×3 (08:13→16:32)
[2018-09-07] MEDS: ENOXAPARIN 40MG/0.4ML SYR SUBCUT SCH (08:13)
[2018-09-07] MEDS: LIDOCAINE 5% PATCH TOP SCH ×2 (08:14)
[2018-09-07 09:13] VITALS: BP 156/46
[2018-09-07 20:00] VITALS: BP 140/60
[2018-09-07] MEDS: ATORVASTATIN CALCIUM 40MG TABLET PO SCH (21:10)
[2018-09-08 06:04] LABS: BASOPHILS % 0.6 % (0.0-2.0); EOSINOPHILS % 3.3 % (0.0-5.0); HEMATOCRIT. 29.2 % (36.0-48.0); HEMOGLOBIN. 9.7 g/dL (12.0-16.0); LYMPHOCYTES % 24.1 % (20.0-50.0); MEAN CORPUSCULAR HEMOGLOBIN 28.2 pg (28.0-32.0); MEAN CORPUSCULAR VOLUME 84.9 fL (81.0-99.0); MEAN PLATELET VOLUME 9.9 fl (7.4-10.4); MONOCYTES % 9.2 % (2.0-8.0); NEUTROPHILS % 62.8 % (40.0-76.0); PLATELET 224 x1000/uL (130-400); RED BLOOD CELL COUNT 3.44 mill/uL (4.2-5.4); RED CELL DISTRIBUTION WIDTH 13.8 % (11.6-14.6)
[2018-09-08] MEDS: BLOOD SUGAR DIAGNOSTIC STRIP TEST SCH ×2 (06:20→12:11)
[2018-09-08] MEDS: INSULIN LISPRO 100 UNITS/ML SUBCUT SCH ×2 (06:21→13:17)
[2018-09-08 07:22] LABS: CHLORIDE 105 mEq/L (98-107)
[2018-09-08 08:40] VITALS: BP 161/66
[2018-09-08] MEDS: ENOXAPARIN 40MG/0.4ML SYR SUBCUT SCH (08:48)
[2018-09-08] MEDS: CELECOXIB 100MG CAPSULE PO SCH (08:50)
[2018-09-08] MEDS: HYDRALAZINE HCL 50MG TABLET PO SCH (08:51)
[2018-09-08] MEDS: ASPIRIN 81MG EC TABLET PO SCH (08:51)
[2018-09-08] MEDS: FUROSEMIDE 40MG TABLET PO SCH (08:51)
[2018-09-08] MEDS: FERROUS SULFATE 325MG TABLET PO SCH ×2 (08:51→13:14)
[2018-09-08] MEDS: METFORMIN HCL 500MG TABLET PO SCH (08:51)
[2018-09-08] MEDS: LOSARTAN POTASSIUM 100 MG TABLET PO SCH (08:51)
[2018-09-08] MEDS: LIDOCAINE 5% PATCH TOP SCH ×2 (08:52→08:53)
[2018-09-08] MEDS ORDERED: CYANOCOBALAMIN 1000MCG/ML VIAL IM SCH (09:00)
[2018-09-08 12:31] VITALS: BP 136/69
== END 2018-09-08 15:10 | disposition home health service (06) | DRG 292 ==
PROVIDERS: ADMIT Physical Medicine & Rehabilitation Spinal Cord Injury Medicine; ATTEND Internal Medicine
DX: I11.0 Hypertensive heart disease with heart failure (principal); N39.0 Urinary tract infection, site not specified; I69.354 Hemiplegia and hemiparesis following cerebral infarction affecting left non-dominant side; E11.9 Type 2 diabetes mellitus without complications; D50.9 Iron deficiency anemia, unspecified; E66.01 Morbid (severe) obesity due to excess calories; I50.33 Acute on chronic diastolic (congestive) heart failure; R13.10 Dysphagia, unspecified; E53.8 Deficiency of other specified B group vitamins; M17.0 Bilateral primary osteoarthritis of knee; B95.2 Enterococcus as the cause of diseases classified elsewhere; R53.81 Other malaise; Z90.710 Acquired absence of both cervix and uterus; Z82.49 Family history of ischemic heart disease and other diseases of the circulatory system; Z91.81 History of falling; Z68.30 Body mass index [BMI] 30.0-30.9, adult
CPT/HCPCS: 36415; 73560; 80048; 82306; 82607; 82728; 82746; 82962; 83540; 83550; 83735; 84100; 84134; 84481; 87077; 87186; 92523; 92610; 93970; 94640; 97110; 97112; 97116; 97162; 97166; 97530; 97535; G0515; J1650; J1815; J3301; J3420; J3490; J7620; A5200